=== PATIENT | female | born 1985 | race Caucasian/White ===

== ENCOUNTER 2017-01-21 11:20 | Emergency (ER) | payer MEDICAID ==
[2017-01-21 11:40] VITALS: BP 162/96
[2017-01-21] MEDS ORDERED: Ketorolac 60 MG/2 ML SDV IM ONE (12:08)
[2017-01-21] MEDS ORDERED: Penicillin V Potassium 250 MG Tab PO ONE (12:09)
[2017-01-21] MEDS ORDERED: Acetaminophen/HYDROcodone 325-5 MG Tab PO ONE (12:10)
[2017-01-21] MEDS ORDERED: Ondansetron 4 MG Tab.DIS PO ONE (12:15)
--- NOTE | 2017-01-21 12:15 | EDM.PDOC ---
ED HPI GENERAL MEDICAL PROBLEM - General Chief Complaint: ENT Problem Stated Complaint: TOOTH INFECTED Time Seen by Provider: 01/21/17 11:55 Source of Information: Reports: Patient History Limitations: Reports: No Limitations - History of Present Illness INITIAL COMMENTS - FREE TEXT/NARRATIVE: Anna presents today with complaints of right lower dental pain for 24 hours with fever, chills and nausea. 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 - Infectious Disease History Infectious Disease History: Reports: Chicken Pox - Past Surgical History HEENT Surgical History: Reports: Adenoidectomy, Tonsillectomy GI Surgical History: Reports: Appendectomy Female Surgical History: Reports: Section Social & Family History - Tobacco Use Smoking Status *Q: Current Every Day Smoker Years of Tobacco use: 18 Packs/Tins Daily: 0.5 Used Tobacco, but Quit: No Month Tobacco Last Used: november Second Hand Smoke Exposure: Yes - Alcohol Use Days Per Week of Alcohol Use: 1 Number of Drinks Per Day: 3 Total Drinks Per Week: 3 - Recreational Drug Use Recreational Drug Use: No Drug Use in Last 12 Months: Yes Recreational Drug Type: Reports: Methamphetamine Recreational Drug Use Frequency: Not Used In Over 3 Months ED ROS ENT - Review of Systems Review Of Systems: See Below Constitutional: Reports: Fever, Chills. Denies: Night Sweats, Diaphoresis HEENT: Reports: Dental Pain, Throat Pain. Denies: Ear Pain, Sinus Problem, Throat Swelling Respiratory: Denies: Shortness of Breath, Wheezing, Cough, Sputum Cardiovascular: Denies: Chest Pain, Dyspnea on Exertion, Edema, Lightheadedness , Syncope Endocrine: Reports: No Symptoms GI/Abdominal: Reports: Nausea. Denies: Abdominal Pain, Constipation, Diarrhea, Distension, Vomiting : Reports: No Symptoms Musculoskeletal: Reports: Neck Pain, Other (Patient reports pain radiating to neck and right side of face to head. ) Skin: Reports: No Symptoms Neurological: Denies: Headache, Numbness, Tingling, Weakness Psychiatric: Reports: No Symptoms Hematologic/Lymphatic: Reports: No Symptoms Immunologic: Reports: No Symptoms ED EXAM, ENT - Physical Exam Exam: See Below Text/Narrative:: Anna is an alert and oriented 31 year old female presenting with fever, chills and right lower dental pain at site of molar with extensive dental decay for 24 hours. She reports the pain was acute yesterday. Hot and cold drinks worsen pain. Exam Limited By: No Limitations General Appearance: Alert, WD/WN, No Apparent Distress Eye Exam: Bilateral Eye: EOMI, PERRL Ears: Normal External Exam, Normal Canal, Hearing Grossly Normal, Normal TMs Nose: Normal Inspection, Normal Mucousa, No Blood Mouth/Throat: Dental Pain, Dental Tenderness, Other (No evidence of abscess, no edema noted to gum, significant pain to decayed right lower molar. ). No: Dry Mucous Membrane, Lip Swelling, Lip Ulcers, Oral Ulcers, Peritonsillar Mass, Pharyngeal Erythema, Throat Swelling, Tongue Swelling, Tonsillar Erythema, Tonsillar Exudates, Tonsillar Swelling Head: Atraumatic, Normocephalic Neck: Normal Inspection, Supple, Full Range of Motion. No: Lymphadenopathy (R) , Lymphadenopathy (L) Respiratory/Chest: No Respiratory Distress, Lungs Clear, Normal Breath Sounds, No Accessory Muscle Use, Chest Non-Tender Cardiovascular: Normal Peripheral Pulses, Regular Rate, Rhythm, No Edema, No Gallop, No Murmur, No Rub GI/Abdominal: Normal Bowel Sounds, Soft, Non-Tender, No Organomegaly, No Distention, No Mass Back: Normal Inspection, Full Range of Motion Extremities: Normal Inspection, Normal Range of Motion, Non-Tender, No Pedal Edema, Normal Capillary Refill Neurological: Alert, Oriented, CN II-XII Intact, Normal Cognition, Normal Gait, No Motor/Sensory Deficits Psychiatric: Normal Affect, Normal Mood Skin: Warm, Dry, Intact, Normal Color, No Rash Lymphatic: No Adenopathy Course - Vital Signs Last Recorded V/S: Last Vital Signs Temp 37.1 C 01/21/17 11:37 Pulse 74 01/21/17 11:37 Resp 18 01/21/17 11:37 BP 162/96 H 01/21/17 11:37 Pulse Ox 98 01/21/17 11:37 - Orders/Labs/Meds Meds: Medications Discontinued Medications Generic Name Dose Route Start Last Admin Trade Name Bassam PRN Reason Stop Dose Admin Hydrocodone Bitart/Acetaminophen 1 tab 01/21/17 12:10 01/21/17 12:15 [place] 325-5 Mg PO 01/21/17 12:11 1 tab ONETIME ONE Administration Ketorolac Tromethamine 60 mg 01/21/17 12:08 01/21/17 12:15 Toradol IM 01/21/17 12:09 60 mg ONETIME ONE Administration Ondansetron HCl 4 mg 01/21/17 12:15 01/21/17 12:19 Zofran Odt PO 01/21/17 12:16 4 mg ONETIME ONE Administration Penicillin V Potassium 500 mg 01/21/17 12:09 01/21/17 12:15 Veetids PO 01/21/17 12:10 500 mg ONETIME ONE Administration Departure - Departure Time of Disposition: 12:31 Disposition: Home, Self-Care 01 Condition: Good Clinical Impression: Dental abscess, Dental caries - Discharge Information Instructions: Dental Abscess Referrals: PCP,None [Primary Care Provider] - Forms: ED Department Discharge Additional Instructions: You have right lower dental pain due to infection or right lower molar with nausea. You are given zofran 4 mg, Hydrocodone 5/325mg, one tablet, Toradol 60mg IM and Penicillin VK 500mg, one tablet in emergency room today. Follow up with Dental Clinic as directed tomorrow (Sunday for dental visit). You are given Penicillin VK 500mg tablets to take four times a day for 7 days. hydrocodone 5/325mg tablet, one tablet every 6 hours as needed for pain #4 tabs. Ibuprofen 600 to 800 MG three times a day by mouth will also help pain and infection. Return for worsening or concerns. - Assessment/Plan Assessment:: Extensive Dental decay with infection, pain and nausea. Plan: Right lower dental pain due to infection or right lower molar with nausea. Patient given zofran 4 mg, Hydrocodone 5/325mg, one tablet, Toradol 60mg IM and Penicillin VK 500mg, one tablet in emergency room today. Follow up with Dental Clinic as directed tomorrow (Sunday for dental visit). Per instymed Patient given Penicillin VK 500mg tablets to take four times a day for 7 days. Hydrocodone 5/325mg tablet, one tablet every 6 hours as needed for pain #4 tabs. She can buy OTC, Ibuprofen 600 to 800 MG three times a day by mouth will also help pain and infection. Return for worsening or concerns.
== END 2017-01-21 12:48 | disposition home or self-care (01) ==
LOC: JP.ED 11:20
DX: K04.7 Periapical abscess without sinus (principal); K02.9 Dental caries, unspecified; I10 Essential (primary) hypertension; F17.210 Nicotine dependence, cigarettes, uncomplicated; Z98.890 Other specified postprocedural states; Z88.1 Allergy status to other antibiotic agents
CPT/HCPCS: 96372; 99283; A9270; J1885

== ENCOUNTER 2019-04-20 11:53 | Emergency (ER) | payer MEDICAID ==
[2019-04-20 12:38] VITALS: BP 123/69; PULSE 69
--- NOTE | 2019-04-20 12:39 | EDM.PDOC ---
ED HPI GENERAL MEDICAL PROBLEM - General Chief Complaint: Allergic Reaction Stated Complaint: RASH, SWOLLEN HANDS, FACE AND KNEES Time Seen by Provider: 04/20/19 11:57 Source of Information: Reports: Patient History Limitations: Reports: No Limitations - History of Present Illness INITIAL COMMENTS - FREE TEXT/NARRATIVE: Anna is a 33 year old female who presents to the ED today with a 3 day hx of redness/burning and swelling to bilateral hands, mostly her fingers, swelling to forehead and face with a swollen feeling in her throat, mild throat soreness , burning and mild swelling to bilateral knees. Patient taking Zyrtec and Ibuprofen with minimal relief in her symptoms. Patient has never had these symptoms in the past, is otherwise healthy. Patient denies any fever/chills. Patient denies any itching, no new exposures to chemicals/foods/medications. Patient denies any chest pain/sob. 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 - Infectious Disease History Infectious Disease History: Reports: Chicken Pox - Past Surgical History HEENT Surgical History: Reports: Adenoidectomy, Tonsillectomy GI Surgical History: Reports: Appendectomy Female Surgical History: Reports: Section Social & Family History - Tobacco Use Smoking Status *Q: Current Every Day Smoker Years of Tobacco use: 20 Packs/Tins Daily: 0.5 - Caffeine Use Caffeine Use: Reports: Coffee - Recreational Drug Use Recreational Drug Use: No ED ROS ALLERGIC REACTION - Review of Systems Review Of Systems: ROS reveals no pertinent complaints other than HPI. ED EXAM GENERAL NO PERIP PULSE - Physical Exam Exam: See Below Exam Limited By: No Limitations General Appearance: Alert, WD/WN, No Apparent Distress Eye Exam: Bilateral Eye: EOMI, PERRL Ears: Normal External Exam, Normal TMs Nose: Normal Inspection, Normal Mucosa Throat/Mouth: Normal Inspection, Normal Oropharynx, No Airway Compromise Head: Atraumatic, Normocephalic, Facial Swelling (forehead and around eyes) Neck: Normal Inspection, Supple, Non-Tender. No: Lymphadenopathy (R), Lymphadenopathy (L) Respiratory/Chest: No Respiratory Distress, Lungs Clear, Normal Breath Sounds Cardiovascular: Normal Peripheral Pulses, Regular Rate, Rhythm, No Murmur GI/Abdominal: Normal Bowel Sounds, Soft, Non-Tender Back Exam: Normal Inspection Extremities: Other (very mild swelling and erythema to bilateral knees) Neurological: Alert, Oriented, CN II-XII Intact Psychiatric: Normal Affect, Normal Mood Skin Exam: Erythema (with mild swelling to digits on bilateral hands) Lymphatic: No Adenopathy Course - Vital Signs Last Recorded V/S: Last Vital Signs Temp 36.2 C 04/20/19 12:21 Pulse 69 04/20/19 12:21 Resp 16 04/20/19 12:21 BP 123/69 04/20/19 12:21 Pulse Ox 99 04/20/19 12:21 Anna is a 33 year old female who presents to the ED today with a 3 day hx of burning rash to fingers, knees and facial swelling. Please refer to HPI and focused exam. No butterfly rash. Fingers warm and swollen, painful, knees just mildly swollen, no effusion, no other joint swelling/pain. Patient's blood work today reassuring, ESR is pending but CRP is unremarkable and white count is normal. LFT's and remaining electrolytes unremarkable as well. Strep is negative. Patient given Zantac, Benadryl and Prednisone here, erythema has improved and facial swelling mildly better, patient just feels tired right now. I still think is mostly histamine driven, however, cannot rule out anything rheumatologic at this time, no infectious etiology. I am going to start patient on a prednisone burst, instructed to start medication tomorrow morning as she had a dose here today. Follow up in clinic. Reasons to return to the ED discussed, patient agreeable and discharged in stable condition. - Orders/Labs/Meds Orders: Active Orders 24 hr Category Date Time Status CULTURE STREP A CONFIRMATION [RM] Stat Lab 04/20/19 12:36 Results STREP SCRN A RAPID W CULT CONF [RM] Stat Lab 04/20/19 12:36 Results Labs: Laboratory Tests 04/20/19 04/20/19 Range/Units 12:45 12:45 WBC 7.4 (4.5-11.0) K/uL RBC 3.99 (3.30-5.50) M/uL Hgb 12.3 (12.0-15.0) g/dL Hct 37.7 (36.0-48.0) % MCV 95 (80-98) fL MCH 31 (27-31) pg MCHC 33 (32-36) % Plt Count 231 (150-400) K/uL Neut % (Auto) 75 H (36-66) % Lymph % (Auto) 16 L (24-44) % [place] % (Auto) 7 H (2-6) % Eos % (Auto) 1 L (2-4) % Baso % (Auto) 0 (0-1) % ESR 6 (0-25) mm/hr Sodium 141 (140-148) mmol/L Potassium 4.1 (3.6-5.2) mmol/L Chloride 109 H (100-108) mmol/L Carbon Dioxide 23 (21-32) mmol/L Anion Gap 13.1 (5.0-14.0) mmol/L BUN 10 (7-18) mg/dL Creatinine 0.7 (0.6-1.0) mg/dL Est Cr Clr Drug Dosing 109.01 mL/min Estimated GFR (MDRD) > 60 (>60) Glucose 89 (74-106) mg/dL Calcium 8.4 L (8.5-10.1) mg/dL Total Bilirubin 0.4 (0.2-1.0) mg/dL AST 15 (15-37) U/L ALT 18 (12-78) U/L Alkaline Phosphatase 51 (46-116) U/L C-Reactive Protein 0.15 (0.0-0.3) mg/dL Total Protein 6.5 (6.4-8.2) g/dL Albumin 3.7 (3.4-5.0) g/dL Globulin 2.8 (2.3-3.5) g/dL Albumin/Globulin Ratio 1.3 (1.2-2.2) Meds: Medications Discontinued Medications Generic Name Dose Route Start Last Admin Trade Name Freq PRN Reason Stop Dose Admin Diphenhydramine HCl 50 mg 04/20/19 12:34 04/20/19 12:40 Benadryl PO 04/20/19 12:35 50 mg ONETIME ONE Administration Famotidine 20 mg 04/20/19 12:35 04/20/19 12:40 Pepcid PO 04/20/19 12:36 20 mg ONETIME ONE Administration Prednisone 40 mg 04/20/19 12:34 04/20/19 12:40 Prednisone PO 04/20/19 12:35 40 mg ONETIME ONE Administration Departure - Departure Time of Disposition: 14:00 Disposition: Home, Self-Care 01 Condition: Good Clinical Impression: Rash and nonspecific skin eruption, Facial swelling - Discharge Information Referrals: PCP,None [Primary Care Provider] - Forms: ED Department Discharge Additional Instructions: Take Benadryl as needed, 25 mg every 4-6 hours. Take a Zyrtec or Claritin daily for a week. Start Prednisone tomorrow as you had a dose here today, take in the morning. Follow up with your primary care provider if symptoms persist - My Orders Last 24 Hours: My Active Orders 04/20/19 12:36 CULTURE STREP A CONFIRMATION [RM] Stat STREP SCRN A RAPID W CULT CONF [RM] Stat - Assessment/Plan Last 24 Hours: My Active Orders 04/20/19 12:36 CULTURE STREP A CONFIRMATION [RM] Stat STREP SCRN A RAPID W CULT CONF [] Stat
[2019-04-20] MEDS: diphenhydrAMINE 25 MG Cap PO ONE (12:40)
[2019-04-20] MEDS: predniSONE 20 MG Tab PO ONE (12:40)
[2019-04-20] MEDS: Famotidine 20 MG Tab PO ONE (12:40)
== END 2019-04-20 13:45 | disposition home or self-care (01) ==
LOC: JP.ED 11:53
DX: R21 Rash and other nonspecific skin eruption (principal); R22.0 Localized swelling, mass and lump, head; M79.89 Other specified soft tissue disorders; I10 Essential (primary) hypertension; F17.210 Nicotine dependence, cigarettes, uncomplicated; Z98.890 Other specified postprocedural states; Z90.49 Acquired absence of other specified parts of digestive tract; Z88.1 Allergy status to other antibiotic agents
CPT/HCPCS: 36415; 80053; 85025; 85651; 86140; 87081; 87880-QW; 99283; A9270-GY

== ENCOUNTER 2019-11-27 15:33 | Emergency (ER) | payer MEDICAID ==
[2019-11-27 16:04] VITALS: BP 151/80; PULSE 104
[2019-11-27] MEDS ORDERED: Lactated Ringers 1,000 ML IV ONE (16:07)
[2019-11-27] MEDS ORDERED: Ondansetron 4 MG/2 ML SDV IVPUSH ONE (16:08)
--- NOTE | 2019-11-27 16:13 | EDM.PDOC ---
ED HPI GENERAL MEDICAL PROBLEM - General Chief Complaint: Gastrointestinal Problem Stated Complaint: STREP WITH VOMITING Time Seen by Provider: 11/27/19 16:00 Source of Information: Reports: Patient, Old Records History Limitations: Reports: No Limitations - History of Present Illness INITIAL COMMENTS - FREE TEXT/NARRATIVE: 34 yo female presents with nausea and vomiting since about 11 am today. No diarrhea. Was dx via strep test in the clinic yesterday with strep and is on amoxicillin for that. Is dizzy with standing now. Onset: Today (of nausea and vomiting) Onset Date: 11/27/19 Duration: Hour(s): (5+), Constant Location: Reports: Neck (throat pain from strep), Abdomen (no pain, N & V) Quality: Reports: Burning (throat only) Severity: Moderate Improves with: Reports: Medication Worsens with: Reports: Other (strep) Context: Reports: Other (see HPI) Associated Symptoms: Reports: Fever/Chills, Malaise, Nausea/Vomiting. 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 - Infectious Disease History Infectious Disease History: Reports: Chicken Pox - Past Surgical History HEENT Surgical History: Reports: Adenoidectomy, Tonsillectomy GI Surgical History: Reports: Appendectomy Female Surgical History: Reports: Section Social & Family History - Caffeine Use Caffeine Use: Reports: Coffee ED ROS GENERAL - Review of Systems Review Of Systems: See Below Constitutional: Reports: Fever, Chills, Malaise HEENT: Reports: Throat Pain Respiratory: Reports: No Symptoms Cardiovascular: Reports: Lightheadedness GI/Abdominal: Reports: Nausea, Vomiting. Denies: Diarrhea, Hematemesis : Reports: No Symptoms Musculoskeletal: Reports: No Symptoms Skin: Reports: No Symptoms Neurological: Reports: No Symptoms ED EXAM, GI/ABD - Physical Exam Exam: See Below Exam Limited By: No Limitations General Appearance: Alert, WD/WN, No Apparent Distress Eyes: Bilateral: Normal Appearance Ears: Normal External Exam, Normal Canal, Hearing Grossly Normal, Normal TMs Nose: Normal Inspection, No Blood Throat/Mouth: Normal Inspection, Normal Lips, Normal Oropharynx (don't see exudates or tonsillar enlargement), Normal Voice, No Airway Compromise Head: Atraumatic, Normocephalic Neck: Normal Inspection Respiratory/Chest: No Respiratory Distress, Lungs Clear, Normal Breath Sounds, No Accessory Muscle Use Cardiovascular: Regular Rate, Rhythm, No Edema, Tachycardia GI/Abdominal Exam: Normal Bowel Sounds, Soft, Non-Tender, No Distention Back Exam: Normal Inspection. No: CVA Tenderness (R), CVA Tenderness (L) Extremities: Normal Inspection, Normal Range of Motion, Non-Tender, No Pedal Edema Neurological: Alert, Oriented, CN II-XII Intact, Normal Cognition, No Motor/ Sensory Deficits Psychiatric: Normal Affect, Normal Mood Skin Exam: Warm, Dry, Intact, Normal Color, No Rash Course - Vital Signs Last Recorded V/S: Last Vital Signs Temp 37.9 C 11/27/19 16:07 Pulse 104 H 11/27/19 16:07 Resp 22 H 11/27/19 16:07 BP 151/80 H 11/27/19 16:07 Pulse Ox 98 11/27/19 16:07 - Orders/Labs/Meds Meds: Medications Discontinued Medications Generic Name Dose Route Start Last Admin Trade Name Freq PRN Reason Stop Dose Admin Lactated Ringer's 1,000 mls @ 1,000 mls/hr 11/27/19 16:07 11/27/19 16:24 Ringers, Lactated IV 11/27/19 17:06 1,000 mls/hr BOLUS ONE Administration Ondansetron HCl 4 mg 11/27/19 16:08 11/27/19 16:25 Zofran IVPUSH 11/27/19 16:09 4 mg ONETIME ONE Administration Departure - Departure Time of Disposition: 17:35 Disposition: Home, Self-Care 01 Condition: Fair Clinical Impression: Strep throat, Dehydration, mild Nausea and vomiting Qualifiers: Vomiting type: unspecified Vomiting Intractability: non-intractable Qualified Code(s): R11.2 - Nausea with vomiting, unspecified - Discharge Information *PRESCRIPTION DRUG MONITORING PROGRAM REVIEWED*: Not Applicable *COPY OF PRESCRIPTION DRUG MONITORING REPORT IN PATIENT AMINATA: Not Applicable Prescriptions: Ondansetron [Zofran ODT] 4 mg PO Q6H PRN #7 tab.dis PRN Reason: Nausea Instructions: Nausea and Vomiting, Adult Referrals: PCP,None [Primary Care Provider] - Forms: ED Department Discharge Additional Instructions: Continue your amoxicillin as directed. Take ibuprofen and/or acetaminophen for fever and pain control. Drink enough fluids so that your urine is light yellow in color. Take Zofran as needed for nausea control. Recheck with your provider as needed. Sepsis Event Note - Focused Exam Vital Signs: Vital Signs Temp Pulse Resp BP Pulse Ox 11/27/19 16:07 37.9 C 104 H 22 H 151/80 H 98 11/27/19 16:02 37.9 C 104 H 22 H 151/80 H 98 Date Exam was Performed: 11/27/19 Time Exam was Performed: 17:32
== END 2019-11-27 17:58 | disposition home or self-care (01) ==
LOC: JP.ED 15:33
DX: E86.0 Dehydration (principal); R11.2 Nausea with vomiting, unspecified; J02.0 Streptococcal pharyngitis; Z88.1 Allergy status to other antibiotic agents; I10 Essential (primary) hypertension
CPT/HCPCS: 96361; 96374; 99283; J2405; J7120

== ENCOUNTER 2020-04-10 15:00 | Emergency (ER) | payer MEDICAID ==
[2020-04-10 15:13] VITALS: BP 142/78; PULSE 109
--- NOTE | 2020-04-10 15:25 | EDM.PDOC ---
ED HPI GENERAL MEDICAL PROBLEM - General Chief Complaint: Upper Extremity Injury/Pain Stated Complaint: HAND INFECTION Time Seen by Provider: 04/10/20 15:10 Source of Information: Reports: Patient, RN Notes Reviewed History Limitations: Reports: No Limitations - History of Present Illness INITIAL COMMENTS - FREE TEXT/NARRATIVE: 34-year-old female presents emergency department today with a small lesion on the palmar surface of her right hand. 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 - Infectious Disease History Infectious Disease History: Reports: Chicken Pox - Past Surgical History Head Surgeries/Procedures: Reports: None HEENT Surgical History: Reports: Adenoidectomy, Tonsillectomy Cardiovascular Surgical History: Reports: None GI Surgical History: Reports: Appendectomy Female Surgical History: Reports: Section Neurological Surgical History: Reports: None Musculoskeletal Surgical History: Reports: None Dermatological Surgical History: Reports: None Social & Family History - Tobacco Use Tobacco Use Status *Q: Current Every Day Tobacco User Years of Tobacco use: 15 Packs/Tins Daily: 0.5 Used Tobacco, but Quit: No Second Hand Smoke Exposure: Yes - Caffeine Use Caffeine Use: Reports: Coffee, Energy Drinks, Soda, Tea Caffeine Use Comment: occ - Recreational Drug Use Recreational Drug Use: No Review of Systems - Review of Systems Review Of Systems: See Below Skin: Reports: Rash, Change in Color, Lesions ED EXAM, GENERAL - Physical Exam Exam: See Below Free Text/Narrative:: Examination of the right hand there is a small lesion approximately size of a dime palmar surface right hand full range of motion all digits radial pulses +2 does appear to be a fluctuant area and there consistent with an abscess there is some tenderness to palpation there is slight amount of pallor Course - Vital Signs Last Recorded V/S: Last Vital Signs Temp 98.0 F 04/10/20 15:15 Pulse 109 H 04/10/20 15:15 Resp 16 04/10/20 15:15 BP 142/78 H 04/10/20 15:15 Pulse Ox 99 04/10/20 15:15 Departure - Departure Time of Disposition: 15:25 Disposition: Home, Self-Care 01 Condition: Fair Clinical Impression: Wound infection - Discharge Information Referrals: PCP,None [Primary Care Provider] - Additional Instructions: Take full course of antibiotics, please followup with your primary care provider in 3-5 days if not better, please call return to the emergency department with worsening of symptoms. Sepsis Event Note (ED) - Evaluation Sepsis Screening Result: No Definite Risk - Focused Exam Vital Signs: Vital Signs Temp Pulse Resp BP Pulse Ox 04/10/20 15:15 98.0 F 109 H 16 142/78 H 99 04/10/20 15:11 98.0 F 109 H 16 142/78 H 99 - Assessment/Plan Plan: Assessment Acuity = acute Site and laterality = local wound infection Etiology = unknown Manifestations = none Location of injury = Home Lab values = none Plan Elected to treat empirically Bactrim DS 1 tab p.o. twice daily x10 days follow- up primary care in 3 to 5 days if not better This note was dictated using [employer] voice recognition software please call with any questions on syntax or grammar.
== END 2020-04-10 15:34 | disposition home or self-care (01) ==
LOC: JP.ED 15:00
DX: L08.9 Local infection of the skin and subcutaneous tissue, unspecified (principal); I10 Essential (primary) hypertension; F17.210 Nicotine dependence, cigarettes, uncomplicated; Z88.1 Allergy status to other antibiotic agents
CPT/HCPCS: 99282

== ENCOUNTER 2021-02-20 16:01 | Emergency (ER) | payer MEDICAID ==
[2021-02-20 16:29] VITALS: BP 111/58; PULSE 97
[2021-02-20] MEDS ORDERED: Bacitracin Oint 1 GM U/D Packet TOP ONE (17:02)
--- NOTE | 2021-02-20 17:03 | EDM.PDOC ---
ED HPI GENERAL MEDICAL PROBLEM - General Chief Complaint: Laceration Stated Complaint: R HAND INJURY Time Seen by Provider: 02/20/21 17:00 Source of Information: Reports: Patient, RN Notes Reviewed History Limitations: Reports: No Limitations - History of Present Illness INITIAL COMMENTS - FREE TEXT/NARRATIVE: 35-year-old female presents emergency department day with a laceration to her right index finger, she injured herself and she was cut by glass while doing this no functional complaints - Related Data Allergies Allergy/AdvReac Type Severity Reaction Status Date / Time vancomycin AdvReac Itching Verified 02/20/21 16:22 Home Meds: Home Meds Dexameth/Neomycin/Polymyxin B [Maxitrol Ophth Susp] 1 drop EYEBOTH QID 02/20/21 [History] Past Medical History HEENT History: Reports: Impaired Vision Cardiovascular History: Reports: Hypertension Gastrointestinal History: Reports: None Genitourinary History: Reports: None [employer] History: Reports: Musculoskeletal History: Reports: Fracture Other Musculoskeletal History: collar bone Neurological History: Reports: Head Trauma Other Neuro History: Brain infection Psychiatric History: Reports: ADD, Bipolar, Depression, Other (See Below) Other Psychiatric History: Hx chemical dependence. - Infectious Disease History Infectious Disease History: Reports: Chicken Pox - Past Surgical History Head Surgeries/Procedures: Reports: None HEENT Surgical History: Reports: Adenoidectomy, Tonsillectomy Cardiovascular Surgical History: Reports: None GI Surgical History: Reports: Appendectomy Female Surgical History: Reports: Section Neurological Surgical History: Reports: None Musculoskeletal Surgical History: Reports: None Dermatological Surgical History: Reports: None Social & Family History - Tobacco Use Tobacco Use Status *Q: Current Every Day Tobacco User Years of Tobacco use: 20 Packs/Tins Daily: 0.5 - Caffeine Use Caffeine Use: Reports: Coffee, Energy Drinks, Soda, Tea Caffeine Use Comment: occ ED ROS GENERAL - Review of Systems Review Of Systems: See Below Skin: Reports: Wound ED EXAM, SKIN/RASH Exam: See Below Text/Narrative:: Examination right hand radial pulses +2 full range of motion all digits she does have a 2 cm laceration across the PIP joint digit #2 right hand sensation is intact Exam Limited By: No Limitations General Appearance: Alert, WD/WN, No Apparent Distress ED SKIN PROCEDURES - Laceration/Wound Repair Right Digit - 2nd (Index) Appearance: Subcutaneous, Linear Distal NVT: Neuro & Vascular Intact, No Tendon Injury Anesthetic Type: Digital Local Anesthesia - Lidocaine (Xylocaine): 1% Plain Local Anesthetic Volume: 2cc Skin Prep: Saline Saline Irrigation (cc's): 60 Exploration/Debridement/Repair: Wound Explored, In a Bloodless Field, Explored to Base Closed with: Sutures Lac/Wound length In cm: 2 Suture Size: 4-0 Suture Type: Nylon, Interrupted Sterile Dressing Applied: Nurse Tetanus Status Addressed: Yes (Updated today) Complications: No Course - Vital Signs Last Recorded V/S: Last Vital Signs Temp 96.8 F L 02/20/21 16:27 Pulse 97 02/20/21 16:27 Resp 14 02/20/21 16:27 BP 111/58 L 02/20/21 16:27 Pulse Ox 95 02/20/21 16:27 - Orders/Labs/Meds Orders: Active Orders 24 hr Category Date Time Status Vaccines to be Administered [RC] PER UNIT ROUTINE Care 02/20/21 17:47 Ordered Diphth,Pertuss(Acell),Tet Vac [Boostrix] Med 02/20/21 17:47 Once 0.5 ml IM .ONCE ONE Meds: Medications Discontinued Medications Generic Name Dose Route Start Last Admin Trade Name Freq PRN Reason Stop Dose Admin Bacitracin 1 dose 02/20/21 17:02 02/20/21 17:32 Bacitracin Oint 1 Gm U/D Packet TOP 02/20/21 17:03 1 dose ONETIME ONE Administration Lidocaine HCl 5 ml 02/20/21 17:02 02/20/21 17:32 Lidocaine 1% 5 Ml Sdv INJECT 02/20/21 17:03 5 ml ONETIME ONE Administration Departure - Departure Time of Disposition: 17:49 Disposition: Home, Self-Care 01 Condition: Good Clinical Impression: Laceration of index finger of right hand without complication - Discharge Information Instructions: Laceration Care, Adult Referrals: Lauren Reynaga DO [Primary Care Provider] - Forms: ED Department Discharge Additional Instructions: Suture removal in 10 days follow wound care instruction sheet, return to your primary care or return to the emergency department for suture removal call return to the emergency department worsening of symptoms Sepsis Event Note (ED) - Evaluation Sepsis Screening Result: No Definite Risk - Focused Exam Vital Signs: Vital Signs Temp Pulse Resp BP Pulse Ox 02/20/21 16:27 96.8 F L 97 14 111/58 L 95 - My Orders Last 24 Hours: My Active Orders 02/20/21 17:47 Vaccines to be Administered [RC] PER UNIT ROUTINE Diphth,Pertuss(Acell),Tet Vac [Boostrix] 0.5 ml IM .ONCE ONE - Assessment/Plan Last 24 Hours: My Active Orders 02/20/21 17:47 Vaccines to be Administered [RC] PER UNIT ROUTINE Diphth,Pertuss(Acell),Tet Vac [Boostrix] 0.5 ml IM .ONCE ONE Plan: Assessment Acuity = acute Site and laterality = 2 cm laceration right digit #2 Etiology = trauma with glass Manifestations = none Location of injury = Home Lab values = none Plan Suture removal in 10 days, follow-up with primary care return to emergency department This note was dictated using [employer] voice recognition software please call with any questions on syntax or grammar.
[2021-02-20] MEDS ORDERED: Diphtheria,Pertussis(Acell),Tetanus Vaccine 0.5 ML Syringe IM ONE (17:47)
== END 2021-02-20 18:19 | disposition home or self-care (01) ==
LOC: JP.ED 16:01
DX: S61.210A Laceration without foreign body of right index finger without damage to nail, initial encounter (principal); I10 Essential (primary) hypertension; Z23 Encounter for immunization; Z88.1 Allergy status to other antibiotic agents; W25.XXXA Contact with sharp glass, initial encounter
CPT/HCPCS: 12001; 90471; 90715; 99282-25

== ENCOUNTER 2022-02-16 15:27 | Emergency (ER) | payer MEDICAID ==
[2022-02-16 17:05] VITALS: BP 136/93; PULSE 107
== END 2022-02-16 18:37 | disposition home or self-care (01) ==
LOC: JP.ED 15:27
DX: S40.022A Contusion of left upper arm, initial encounter (principal); S40.021A Contusion of right upper arm, initial encounter; I10 Essential (primary) hypertension; Z88.1 Allergy status to other antibiotic agents; Y04.0XXA Assault by unarmed brawl or fight, initial encounter
CPT/HCPCS: 73080-26-RT; 73080-RT; 99282; 99284

== ENCOUNTER 2022-08-15 14:08 | Emergency (ER) | payer MEDICAID ==
[2022-08-15 15:10] LABS: ESTIMATED GFR 86 mL/min (>60)
[2022-08-15] MEDS ORDERED: Sodium Chloride 0.9% 1,000 ML IV SCH (15:15)
[2022-08-15] MEDS ORDERED: Sodium Chloride 0.9% 50 ML IV ONE (15:41)
[2022-08-15] MEDS ORDERED: Sodium Chloride 0.9% 10 ML Syringe FLUSH PRN (15:41)
[2022-08-15] MEDS ORDERED: Iopamidol 612 MG/ML 100 ML Bottle IV PRN (15:41)
[2022-08-15 17:23] VITALS: BP 109/70; PULSE 103
[2022-08-19 07:14] LABS: CHLAMYDIA TRACHOMATIS, NAA Negative (Negative); NEISSERIA GONORRHOEAE, NAA Negative (Negative)
== END 2022-08-15 18:17 | disposition home or self-care (01) ==
LOC: JP.ED 14:08
DX: E86.0 Dehydration (principal); N73.9 Female pelvic inflammatory disease, unspecified; N92.0 Excessive and frequent menstruation with regular cycle; I10 Essential (primary) hypertension; Z88.1 Allergy status to other antibiotic agents
CPT/HCPCS: 36415; 74177; 80053; 81001; 81025; 85025; 86140; 87070; 87491; 87591; 96360; 99283; 99285; J3490; J7030; Q9967

== ENCOUNTER 2024-04-24 08:05 | Emergency (ER) | payer MEDICAID ==
[2024-04-24 08:32] VITALS: BP 120/74; PULSE 86
[2024-04-24 09:11] LABS: ALANINE AMINOTRANSFERASE,ALT 31 U/L (12-78); ALBUMIN 3.8 g/dL (3.4-5.0); ALKALINE PHOSPHATASE 87 U/L (46-116); ANION GAP 10.6 mmol/L (5.0-14.0); ASPARTATE AMNIOTRANSFERASE,AST 21 U/L (15-37); BILIRUBIN TOTAL 0.3 mg/dL (0.2-1.0); BLOOD UREA NITROGEN,BUN 6 mg/dL (7-18); CALCIUM 9.2 mg/dL (8.5-10.1); CARBON DIOXIDE,CO2 26 mmol/L (21-32); CHLORIDE,CL 105 mmol/L (100-108); CREATININE 0.9 mg/dL (0.6-1.0); EST CRCL DRUG DOSING (CG) 77.76 mL/min; ESTIMATED GFR 85 mL/min (>60); GLUCOSE RANDOM 107 mg/dL (74-106); POTASSIUM,K 3.7 mmol/L (3.6-5.2); PROTEIN TOTAL,TP 7.8 g/dL (6.4-8.2); SODIUM,NA 142 mmol/L (140-148)
[2024-04-24 09:11] LABS: BASOPHILS ABSOLUTE AUTO 0.04 K/uL (0.00-0.10); BASOPHILS PERCENT AUTO 0.3 % (0.1-1.3); EOSINOPHILS ABSOLUTE AUTO 0.07 K/uL (0.00-0.40); EOSINOPHILS PERCENT AUTO 0.5 % (0.0-5.4); HEMOGLOBIN 13.4 g/dL (11.2-15.5); IMMATURE GRAN ABSOLUTE AUTO 0.06 K/uL (0.00-0.23); IMMATURE GRAN PERCENT AUTO 0.4 % (0.0-0.7); LYMPHOCYTES ABSOLUTE AUTO 1.97 K/uL (0.8-3.3); LYMPHOCYTES PERCENT AUTO 12.9 % (11.4-47.7); MEAN CORPUSCULAR HEMOGLOBIN 30.8 pg (31.6-35.5); MEAN CORPUSCULAR HGB CONC 35.3 g/dL (31.6-35.5); MEAN CORPUSCULAR VOLUME 87.4 fL (81.4-99.0); MONOCYTES ABSOLUTE AUTO 1.25 K/uL (0.20-0.90); MONOCYTES PERCENT AUTO 8.2 % (3.3-12.6); NEUTROPHILS ABSOLUTE AUTO 11.94 K/uL (1.0-7.6); NEUTROPHILS PERCENT AUTO 77.7 % (40.0-78.1); PLATELET COUNT,PLT 210 K/uL (130-375); RED BLOOD CELL COUNT 4.35 M/uL (3.77-5.24); WHITE BLOOD CELL COUNT,WBC 15.3 K/uL (3.2-11.0)
[2024-04-24 09:29] LABS: CORONAVIRUS COVID-19 NAA NEGATIVE (NEGATIVE); INFLUENZA A NAA NEGATIVE (NEGATIVE); INFLUENZA B NAA NEGATIVE (NEGATIVE); RESPIRATORY SYNCYTIAL VIR NAA NEGATIVE (NEGATIVE)
[2024-04-27 07:05] LABS: EBV QNT BY NAAT, PL LOG IU/ML Not Detected log IU/mL; EBV QNT BY NAAT, PLASMA INTERP Not Detected (Not Detected); EBV QNT BY NAAT, PLASMA IU/ML Not Detected
== END 2024-04-24 10:15 | disposition home or self-care (01) ==
LOC: JP.ED 08:05
DX: J06.9 Acute upper respiratory infection, unspecified (principal); B97.89 Other viral agents as the cause of diseases classified elsewhere; I10 Essential (primary) hypertension; Z88.1 Allergy status to other antibiotic agents; Z79.899 Other long term (current) drug therapy; Z90.49 Acquired absence of other specified parts of digestive tract
CPT/HCPCS: 0241U; 80053; 85025; 87651; 87799; 99283; 99284; 36415